=== PATIENT | male | born 1985 | race Caucasian/White ===

== ENCOUNTER 2016-07-10 11:03 | Emergency (ER) | payer BC, OTHER ==
[~2016-07-10] VITALS: Ht 162.6 cm; Wt 100.0 kg
[~2016-07-10 11:03] MED LIST: CEPH500C3 PO; DOXY100T PO
[2016-07-10 11:10] VITALS: BP 147/85; PULSE 63; RESP 16; TEMP 98.2; O2SAT 96
[2016-07-10] MEDS ORDERED: LIDOCAINE 1%/EPINEPHrine 1:100,000 SOLN 20 ML VIAL INFIL ONE (12:00)
--- NOTE | 2016-07-10 12:04 | PD ---
HPI Chief Complaint: Laceration/Skin Injury Time Seen by Provider: 12:00 Travel History International Travel<30 days: No Contact w/Intl Traveler<30days: No Traveled to known affect area: No History of Present Illness HPI 31-year-old male presents to the emergency room for evaluation of laceration over the right eyebrow that occurred earlier today. Patient was trying to remove the nail from fluid when the crowbar slipped and struck him in the face. He reports pain in the bone, underneath the laceration. He cleaned the wound and debated whether he could glue it but decided to come to the emergency room. He denies any eye trauma or visual disturbances. Last Tetanus was last year. 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) Neurologic: Yes (NECK PAIN OCCAS & ARMS CAN BECOME NUMB) Psychiatric: No Respiratory: No Thyroid Disease: No Tetanus Vaccination: < 5 Years Influenza Vaccination: No Past Surgical History Abdominal Surgery: No AICD: No Body Medical Devices: 1 PLATE & 12 SCREWS RIGHT COLLARBONE Cardiac Surgery: No Ear Surgery: No Eye Surgery: No Genitourinary Surgery: No Joint Replacement: No Neurologic Surgery: No Oral Surgery: Yes (T&A) Pacemaker: No Thoracic Surgery: No Other Surgery: Yes (COLLARBONE, WRIST) Social History Alcohol Use: Yes (occas) Tobacco Use: Yes (occas) Substance Use: No Allergies-Medications (Allergen,Severity, Reaction): Coded Allergies: Morphine (Verified Allergy, Severe, Cardiac Arrest, 07/10/16) Reported Meds & Prescriptions Reported Meds & Active Scripts Active No Active Prescriptions or Reported Medications Review of Systems Except as stated in HPI: all other systems reviewed are Neg Physical Exam Narrative GENERAL: Well-nourished, well-developed male in no acute distress. Afebrile. Ambulatory. SKIN: Focused skin assessment warm/dry. There is a 3 cm well approximated, horizontal laceration over the right eyebrow. HEAD: Normocephalic. EYES: No scleral icterus. No injection or drainage. NECK: Supple, trachea midline. No JVD or lymphadenopathy. CARDIOVASCULAR: Regular rate and rhythm without murmurs, gallops, or rubs. RESPIRATORY: Breath sounds equal bilaterally. No accessory muscle use. PSYCHIATRIC: No delusional thought processes. No hallucinations. Data Data Last Documented VS Vital Signs Date Time Temp Pulse Resp B/P Pulse Ox O2 Delivery O2 Flow Rate FiO2 07/10/16 11:10 98.2 63 16 147/85 96 Orders Lidocai-Epi 1%-1:100,000 Inj (Xylocaine- (07/10/16 12:15) MDM Medical Decision Making Medical Screen Exam Complete: Yes Emergency Medical Condition: Yes Medical Record Reviewed: Yes Differential Diagnosis Abrasion versus laceration versus contusion Narrative Course 31-year-old male presents to the emergency room for evaluation of a laceration over his right eyebrow that occurred just prior to arrival. Patient struck his eyebrow with a crowbar while trying to remove the nail. He denies any eye injury. Physical exam reveals a 3 cm well-approximated laceration that is nonbleeding. Wound was thoroughly cleansed and repaired, see procedure note for details. Patient discharged with wound care instructions and told to follow up with a PCP or return for worsening symptoms. He understands and agrees to plan. Procedures Procedure Narrative LACERATION LOCATION: Right eyebrow LENGTH: 3 cm NUMBER OF STITCHES/DEIRDRE: 6 simple interrupted REPAIR: The area of the laceration was prepped with Betadine and sterilely draped. The laceration was infiltrated with 1% lidocaine with epinephrine. The wound was copiously irrigated and explored without evidence of foreign body , tendon injury or neurovascular injury. The wound was closed using 6-0 Prolene. This was a single layer repair. A sterile dressing was applied. The patient was advised to keep the dressing clean and dry. Patient tolerated the procedure well. Diagnosis Primary Impression: Laceration of eyebrow, right Qualified Code: S01.111A - Laceration of eyebrow, right, initial encounter Referrals: Primary Care Physician Patient Instructions: Facial Laceration (ED), General Instructions Additional Instructions: Rest and drink plenty of fluids. Keep wound clean and dry. Sutures out in 5 days. Follow-up with a primary care physician. Return to the emergency room for worsening symptoms. Med/Other Pt SpecificInfo: Prescription(s) given Scripts No Active Prescriptions or Reported Meds Disposition: 01 DISCHARGE HOME Condition: Stable Elisha Moraes July 10, 2016 12:03
[2016-07-10] MEDS ORDERED: LIDOCAINE 1%/EPINEPHrine 1:100,000 SOLN 30 ML VIAL INFIL ONE (12:15)
== END 2016-07-10 12:39 | disposition home or self-care (01) ==
LOC: PHEFT 11:03
DX: S01.111A Laceration without foreign body of right eyelid and periocular area, initial encounter (principal); Z72.0 Tobacco use; Z88.5 Allergy status to narcotic agent; W22.8XXA Striking against or struck by other objects, initial encounter
CPT/HCPCS: 12013